=== PATIENT | female | born 1980 | race Caucasian/White ===

== ENCOUNTER 2022-01-07 11:17 | Outpatient (CLI) | payer BC ==
--- NOTE | 2022-01-07 12:41 | XRAY Report ---
PROCEDURE: Chest 2 View X-Ray INDICATIONS: COUGH TECHNIQUE: Two view(s) of the chest. COMPARISON: None. FINDINGS: Surgical changes and devices: None. Lungs and pleura: No pleural effusions or pneumothorax. Lungs are clear. Mediastinum: Mediastinal contours are normal. Heart size is normal. Bones and chest wall: No suspicious bony abnormalities. Soft tissues appear unremarkable. IMPRESSION: No acute cardiopulmonary process demonstrated radiographically. Reviewed by: Jagjit Parham MD on 01/07/2022 12:40 PM [facility] Approved by: Jagjit Parham MD on 01/07/2022 12:40 PM [facility] Station ID: [id number]
== END 2022-01-07 11:18 | disposition home or self-care (01) ==
LOC: DI.S 11:17
PROVIDERS: ATTEND Physician Assistant
DX: R05.9 Cough, unspecified (principal)